=== PATIENT | female | born 1965 | race Caucasian/White ===

== ENCOUNTER 2018-05-01 06:18 | Emergency (ER) | payer OTHER ==
[~2018-05-01] VITALS: Ht 180.3 cm; Wt 69.0 kg
[2018-05-01 06:18] VITALS: BP 128/76
[2018-05-01] MEDS ORDERED: PROPOFOL 10 MG/ML, 20ML IVPush ONE (06:30)
[2018-05-01] MEDS ORDERED: SODIUM CHLORIDE FLUSH 10ML SYR IVF ONE (06:30)
[2018-05-01] MEDS ORDERED: PLEASE ENTER ALLERGIES MC SCH (06:30)
[2018-05-01] MEDS ORDERED: PROPOFOL 10 MG/ML, 20ML ONE (07:04)
[2018-05-01] MEDS ORDERED: LORazepam 2 MG/ML, 1ML IVPush ONE (08:30)
== END 2018-05-01 09:35 | disposition home or self-care (01) ==
LOC: ED 09:29 → OR 09:35 → ED 09:35
DX: K62.89 Other specified diseases of anus and rectum (principal)
CPT/HCPCS: 74018; 99152; 99285; J2704